=== PATIENT | male | born 1955 | race Caucasian/White ===

== ENCOUNTER → 2017-11-24 | Emergency (ER) | payer OTHER ==
[~2017-11-24] VITALS: Ht 180.3 cm; Wt 104.3 kg
[~2017-11-24] MED LIST: BAYER CHEWABLE81 MG; COZAAR25 MG; CRESTOR5 MG; DICLOFENAC POTA50 MG PO; JANUMET 50-1,01 EACH; ZANTAC25 MG/1 ML
== END | disposition home or self-care (01) ==
LOC: ER 07:46
DX: S20.211A Contusion of right front wall of thorax, initial encounter (principal); W10.8XXA Fall (on) (from) other stairs and steps, initial encounter; Y93.89 Activity, other specified; Y92.018 Other place in single-family (private) house as the place of occurrence of the external cause; Y99.8 Other external cause status

== ENCOUNTER 2018-09-08 12:30 | Emergency (ER) | payer OTHER ==
[~2018-09-08] VITALS: Ht 177.8 cm; Wt 104.3 kg
[2018-09-08] MEDS ORDERED: CARDURA1 MG (13:01)
[2018-09-09] MEDS ORDERED: ADALAT CC30 MG PO (02:30)
== END 2018-09-09 02:48 | disposition home or self-care (01) ==
LOC: ER 12:30 → EDBD 13:38 → ER 13:38
DX: I16.0 Hypertensive urgency (principal); I10 Essential (primary) hypertension

== ENCOUNTER 2018-09-10 19:43 | Emergency (ER) | payer OTHER ==
[~2018-09-10] VITALS: Ht 177.8 cm; Wt 104.3 kg
[~2018-09-10 19:43] MED LIST changes: +ADALAT CC30 MG PO; +CARDURA1 MG
== END 2018-09-10 23:17 | disposition home or self-care (01) ==
LOC: ER 19:43
DX: I16.0 Hypertensive urgency (principal); I10 Essential (primary) hypertension; R51 Headache